=== PATIENT | female | born 1980 | race African-American/Black ===

== ENCOUNTER 2018-03-22 18:26 | Emergency (ER) | payer SELFPAY ==
[2018-03-22 18:45] VITALS: BP 164/89
[2018-03-22] MEDS ORDERED: CIPROFLOXACIN HCL 0.3% OPH SOLN 2.5 ML OS ONE (18:57)
[2018-03-22] MEDS ORDERED: IBUPROFEN 800 MG TABLET PO ONE (18:58)
--- NOTE | 2018-03-22 19:03 | ER Document Report ---
ED ENT - General Chief Complaint: Ear Pain Stated Complaint: EARACHE Time Seen by Provider: 03/22/18 18:48 Mode of Arrival: Ambulatory Information source: Patient Notes: 37-year-old female presented ED for complaint of ear pain with sinus drainage this started yesterday. She states the pain is so bad in her left ear that is causing headaches. Patient is alert oriented, pupils equal and react to light. TRAVEL OUTSIDE OF THE [place] IN LAST 30 DAYS: No - HPI Patient complains to provider of: Ear problem, Nose problem. No: Throat problem Onset: Yesterday Onset/Duration: Gradual Quality of pain: Stabbing - Throbbing Severity: Severe Pain Level: 5 Context: Recent Illness Location of pain: Ears, Nose, Sinus Associated symptoms: Ear pain, Ear drainage, Runny nose, Sinus pain, Sinus drainage Similar symptoms previously: No Recently seen / treated by doctor: No - Related Data Allergies/Adverse Reactions: Penicillins Allergy (Verified 03/22/18 18:27) Past Medical History - General Information source: Patient - Social History Smoking Status: Current Every Day Smoker Cigarette use (# per day): Yes - Half pack per day Chew tobacco use (# tins/day): No Smoking Education Provided: Yes - 4 minutes Frequency of alcohol use: Social - Couple beer every other day Drug Abuse: None Occupation: Call center Family History: Reviewed & Not Pertinent Patient has suicidal ideation: No Patient has homicidal ideation: No - Past Medical History Cardiac Medical History: Reports: None Pulmonary Medical History: Reports: None EENT Medical History: Reports: None Neurological Medical History: Reports: None Endocrine Medical History: Reports: None Renal/ Medical History: Reports: None Malignancy Medical History: Reports: None GI Medical History: Reports: None Musculoskeltal Medical History: Reports None Skin Medical History: Reports None Psychiatric Medical History: Reports: Hx Anxiety, Hx Bipolar Disorder, Hx Depression Traumatic Medical History: Reports: None Infectious Medical History: Reports: None Past Surgical History: Reports: Hx Tubal Ligation Review of Systems - Review of Systems Constitutional: Recent illness EENT: Ear pain, Ear discharge, Nose congestion, Nose discharge, Sinus pressure, Sinus discharge Cardiovascular: No symptoms reported Respiratory: No symptoms reported Gastrointestinal: No symptoms reported Genitourinary: No symptoms reported Female Genitourinary: No symptoms reported Skin: No symptoms reported Hematologic/Lymphatic: No symptoms reported Neurological/Psychological: Headaches -: Yes All other systems reviewed and negative Physical Exam - Vital signs Vitals: Temp Pulse Resp BP Pulse Ox 98.8 F 88 16 164/89 H 100 03/22/18 18:44 03/22/18 18:44 03/22/18 18:44 03/22/18 18:44 03/22/18 18:44 Interpretation: Normal - General General appearance: Appears well, Alert - HEENT Head: Normocephalic, Atraumatic Eyes: Normal Pupils: PERRL Ears: Pinna tenderness External canal: Erythema, Swollen Tympanic membrane: Other - Able to visualize due to the swelling Sinus: Normal Nasal: Swelling, Clear rhinorrhea Mouth/Lips: Normal Mucous membranes: Normal Pharynx: Post nasal drainage Neck: Anterior cervical chain - Respiratory Respiratory status: No respiratory distress Chest status: Nontender Breath sounds: Normal Chest palpation: Normal - Cardiovascular Rhythm: Regular Heart sounds: Normal auscultation Murmur: No - Abdominal Inspection: Normal Distension: No distension Bowel sounds: Normal Tenderness: Nontender Organomegaly: No organomegaly - Back Back: Normal, Nontender - Extremities General upper extremity: Normal inspection, Nontender, Normal color, Normal ROM , Normal temperature General lower extremity: Normal inspection, Nontender, Normal color, Normal ROM , Normal temperature, Normal weight bearing. No: Leila's sign - Neurological Neuro grossly intact: Yes Cognition: Normal Orientation: AAOx4 [place] Coma Scale Eye Opening: Spontaneous [place] Coma Scale Verbal: Oriented [place] Coma Scale Motor: Obeys Commands [place] Coma Scale Total: 15 Speech: Normal Motor strength normal: LUE, RUE, LLE, RLE Sensory: Normal - Psychological Associated symptoms: Normal affect, Normal mood - Skin Skin Temperature: Warm Skin Moisture: Dry Skin Color: Normal Course - Re-evaluation Re-evalutation: 03/22/18 20:51 Patient had a left otitis externa. Patient was treated with Cipro with wick to the left ear. Patient was given instructions on eardrop use. Patient was also given instructions on cough and cold treatments. Patient to follow-up with her primary doctor. Patient also encouraged to decrease or stop smoking. After performing a Medical Screening Examination, I estimate there is LOW risk for ACUTE CORONARY SYNDROME, RESPIRATORY FAILURE, SEPSIS OR MENINGITIS, thus I consider the discharge disposition reasonable. I have reevaluated this patient multiple times and no significant life threatening changes are noted. The patient and I have discussed the diagnosis and risks, and we agree with discharging home with close follow-up. We also discussed returning to the Emergency Department immediately if new or worsening symptoms occur. We have discussed the symptoms which are most concerning (e.g., changing or worsening pain, trouble swallowing or breathing, neck stiffness, fever) that necessitate immediate return. - Vital Signs Vital signs: Temp Pulse Resp BP Pulse Ox 98.8 F 88 16 164/89 H 100 03/22/18 18:44 03/22/18 18:44 03/22/18 18:44 03/22/18 18:44 03/22/18 18:44 Discharge - Discharge Clinical Impression: Otitis externa Qualifiers: Otitis externa type: unspecified type Chronicity: acute Laterality: left Qualified Code(s): H60.502 - Unspecified acute noninfective otitis externa, left ear Condition: Stable Disposition: HOME, SELF-CARE Instructions: Family Physicians / Practices, Use of Sxjd-Yra-Lzvjjua Ibuprofen ([facility]) Additional Instructions: OTITIS EXTERNA: You have otitis externa -- an infection of the outer ear canal. This can be very painful. It's sometimes called "swimmer's ear," because it often occurs after prolonged water exposure. Many things, such as earwax and dirt in the ear, can contribute to it. The usual treatment is antibiotic/antiinflammatory ear drops. Occasionally , a wick will be placed in the ear to draw in the medicine. If the infection is severe, an oral antibiotic may be prescribed. Pain medication is often needed. Avoid getting water in the ear. Outer ear infections often take longer to heal than you might expect. Some tenderness and ache in the ear may persist for about two weeks. See your physician if you fail to improve as expected. Call the doctor at once if you develop fever, increasing swelling (particularly if it makes your ear "poke out"), severe headache, stiff neck, or decreased hearing. USE OF EAR DROPS: Your ear drops won't do much good if they don't get all the way in. To help the ear drops penetrate all the way to the ear drum, use the following technique. If you encounter problems of any kind, notify the physician. (1) Lay your head sideways on a pillow. (2) Place the dropper tip just barely inside the ear canal, almost touching the bottom side of the canal. The liquid is tolerated better on the bottom of the canal. (3) Squeeze out the appropriate amount of medicine, and remove the dropper. (4) Grab the back of the ear (just behind the ear canal) between your index finger and thumb. (5) Tug up, then let the ear drop back. Repeat several times. This pumps the medicine down. (6) Wait five minutes, then place a cotton ball in the ear canal to catch and hold the medicine. USING EAR DROPS WITH A WICK: A wick may be placed in your ear. This keeps the medicine in constant contact with the ear canal. You'll need to put fresh medicine into the wick. Follow these instructions. If you encounter problems of any kind, notify the physician. (1) Lay your head sideways on a pillow. (2) Place the dropper tip so it's almost touching the wick. (3) Squeeze out the appropriate amount of medicine. (4) Wait a minute for the medicine to soak in before sitting up. (5) Wipe away any extra medicine from your ear. CIPROFLOXACIN: You have been given an antibacterial agent, ciprofloxacin (Cipro). This medicine is not related to the penicillins, sulfas, cephalosporins, or tetracyclines. It is often given to patients who are allergic to these drugs. It has been chosen for you either because other drugs are not appropriate, or because of the nature of your problem. Cipro should not be taken with antacids, as these can decrease its effectiveness. It can be taken without regard to meals. CIPRO SHOULD NOT BE TAKEN BY CHILDREN, NURSING WOMEN, OR WOMEN. Although Cipro is usually well-tolerated, common side effects can include nausea and diarrhea. Contact your doctor if you experience any unusual symptoms while on this medication, such as joint pain or swelling, shortness of breath, wheezing, faintness, or hives. USE OF ACETAMINOPHEN (Tylenol): Acetaminophen may be taken for pain relief or fever control. It's much safer than aspirin, offering a wider range of "safe" dosages. It is safe during . Some brand names are Tylenol, Panadol, Datril, Anacin 3, Tempra, and Liquiprin. Acetaminophen can be repeated every four hours. The following are maximum recommended dosages: WEIGHT Dose Drops Elixir Chewable( 80mg) (LBS.) drprs=droppers tsp=teaspoon 6 40 mg 0.4 ml (1/2) 6-11 80 mg 0.8 ml (full) tsp 1 tab 12-16 120 mg 1 1/2 drprs 3/4 tsp 1 1/2 tabs 17-23 160 mg 2 drprs 1 tsp 2 tabs 24-30 240 mg 3 drprs 1 1/2 tsp 3 tabs 30-35 320 mg 2 tsp 4 tabs 36-41 360 mg 2 1/4 tsp 4 1/2 tabs 42-47 400 mg 2 1/2 tsp 5 tabs 48-53 480 mg 3 tsp 6 tabs 54-59 520 mg 3 1/4 tsp 6 1/2 tabs 60-64 560 mg 3 1/2 tsp 7 tabs 65-70 600 mg 3 3/4 tsp 7 1/2 tabs 71-76 640 mg 4 tsp 8 tabs 77-82 720 mg 4 1/2 tsp 9 tabs 83-88 800 mg 5 tsp 10 tabs >89 pounds or adults 650 mg to 900 mg Acetaminophen can be repeated every four hours. Maximum dose not to exceed 4000 mg a day. These maximum recommended dosages are slightly higher than the dosages written on the product container, but these dosages are very safe and below the toxic dosage for acetaminophen. FOLLOW-UP CARE: If you have been referred to a physician for follow-up care, call the physician s office for an appointment as you were instructed or within the next two days. If you experience worsening or a significant change in your symptoms, notify the physician immediately or return to the Emergency Department at any time for re-evaluation. Prescriptions: Ciprofloxacin HCl/Hc [Cipro Hc Otic Suspension 10 ml] 4 drop LFT_EAR BID #1 bottle Forms: Elevated Blood Pressure, Smoking Cessation Education, Return to Work
== END 2018-03-22 19:34 | disposition home or self-care (01) ==
LOC: ER 18:26
DX: H60.502 Unspecified acute noninfective otitis externa, left ear (principal); H92.02 Otalgia, left ear; H92.10 Otorrhea, unspecified ear; R51 Headache; J34.89 Other specified disorders of nose and nasal sinuses; R09.89 Other specified symptoms and signs involving the circulatory and respiratory systems; F17.210 Nicotine dependence, cigarettes, uncomplicated
CPT/HCPCS: 99282; J3490

== ENCOUNTER 2018-04-14 00:54 | Emergency (ER) | payer SELFPAY ==
[2018-04-14] MEDS ORDERED: LIDOCAINE 1% INJ-PF (10 MG/ML) 30 ML SDV INJ ONE (01:25)
--- NOTE | 2018-04-14 01:56 | RADIOLOGY REPORT (SQ) ---
PLAIN FILM OF THE ELBOW right CLINICAL HISTORY: 37-year-old female with right elbow pain. TECHNIQUE: Frontal and lateral views of the elbow are submitted for review. COMPARISON:None. FINDINGS: There is a small avulsion seen involving the posterior aspect of the proximal radial head. This is best seen on the lateral view. Trace effusion is demonstrated. Bone mineralization is within normal limits. Joint spaces are maintained. IMPRESSION: Small avulsion involving the posterior aspect of the inferior proximal radial head seen best on the lateral view.
--- NOTE | 2018-04-14 02:47 | ER Document Report ---
ED General - General Mode of Arrival: Ambulatory Information source: Patient TRAVEL OUTSIDE OF THE [place] IN LAST 30 DAYS: No - General Chief Complaint: Laceration Stated Complaint: RIGHT ELBOW LACERATION Time Seen by Provider: 04/14/18 01:20 Notes: 37-year-old female patient presents with complaint of laceration to her right elbow. Patient reports that she hit her elbow into a picture frame. Patient reports that she had a tetanus shot approximately 3 years ago. (PEGGY BARTLETT) - Related Data Allergies/Adverse Reactions: Penicillins Allergy (Verified 03/22/18 18:27) Past Medical History - Social History Smoking Status: Current Every Day Smoker Chew tobacco use (# tins/day): No Frequency of alcohol use: Occasional Drug Abuse: None Family History: Reviewed & Not Pertinent Patient has suicidal ideation: No Patient has homicidal ideation: No Renal/ Medical History: Denies: Hx Peritoneal Dialysis Psychiatric Medical History: Reports: Hx Anxiety, Hx Bipolar Disorder, Hx Depression Past Surgical History: Reports: Hx Tubal Ligation - Vital signs Vitals: Temp Pulse Resp BP Pulse Ox 98.7 F 105 H 20 174/104 H 98 04/14/18 01:03 04/14/18 01:03 04/14/18 01:03 04/14/18 01:03 04/14/18 01:03 Course - Re-evaluation Re-evalutation: Patient's 2 cm laceration to right elbow was repaired, see procedure note. Patient has full range of motion of her right arm, radial and ulnar pulses are present. Cap refill is less than 3 seconds and patient has normal sensation to her bilateral extremities. Patient was discharged home with instructions to return to the emergency department or to her primary care provider for suture removal. Upon review of the final radiology report there is a small avulsion fracture to the proximal radial head. Patient already discharged at the time I reviewed this radiology report. Will contact patient and provide antibiotic coverage with doxycycline as well as a referral to orthopedics. (PEGGY BARTLETT) 04/14/18 18:57 Patient has returned to the emergency room for the O oblique view she registered as an outpatient. She does have some abrasions and tenderness at the radial head. The laceration is at the olecranon. She worked all day she could not miss excuse and training. Her cell phone number is [phone] for results of the oblique view. She has signed the new discharge paperwork and understands to follow-up with orthopedics and to fill the doxycycline prescription and hydrocodone that was she was given for pain. (MAGALI RAYO) - Vital Signs Vital signs: Temp Pulse Resp BP Pulse Ox 98.3 F 91 16 176/107 H 100 04/14/18 03:01 04/14/18 03:01 04/14/18 03:01 04/14/18 03:01 04/14/18 03:01 Procedures - Laceration/Wound Repair Right Elbow Wound length (cm): 2 Wound's Depth, Shape: Superficial Anesthetic type: 1% Lidocaine Volume Anesthetic (mLs): 6 Wound explored: Clean Irrigated w/ Saline (mLs): 30 Wound Repaired With: Sutures Suture Size/Type: 5:0, Nylon Number of Sutures: 6 Post-procedure NV exam normal: Yes Complications: No Discharge - Discharge Clinical Impression: Laceration Radial head fracture Qualifiers: Encounter type: initial encounter Fracture type: closed Fracture alignment: nondisplaced Laterality: right Qualified Code(s): S52.124A - Nondisplaced fracture of head of right radius, initial encounter for closed fracture Condition: Stable Disposition: HOME, SELF-CARE Instructions: Antibiotic Ointment Protection ([facility]), Laceration Care ([facility]), Soap Cleansing ([facility]) Additional Instructions: Please return to the emergency department or your primary care provider for suture removal in 10-12 days. Please keep the area clean and dry. Use soapy water twice daily to clean the area. Signs of infection will include redness, swelling, drainage or foul odor. Please return to the emergency department if you develop any of the symptoms. Please take the antibiotic as prescribed. Use the pain medications as needed. Follow-up with orthopedics, call today for an appointment. Prescriptions: Doxycycline Hyclate 100 mg PO BID #14 capsule Hydrocodone/Acetaminophen [Hydrocodon-Acetaminophen 5-325] 1 each PO Q4 PRN #12 tablet PRN Reason: For Pain Forms: Follow-Up Radiology Testing, Return to Work Referrals: EMILEE PENDLETON MD [ACTIVE STAFF] - Follow up as needed
[2018-04-14 03:05] VITALS: BP 176/107
== END 2018-04-14 03:06 | disposition home or self-care (01) ==
LOC: ER 00:54
PROC: 0HQDXZZ Repair Right Lower Arm Skin, External Approach (ICD-10-PCS; principal; 2018-04-14)
DX: S52.124A Nondisplaced fracture of head of right radius, initial encounter for closed fracture (principal); W45.8XXA Other foreign body or object entering through skin, initial encounter; F17.200 Nicotine dependence, unspecified, uncomplicated
CPT/HCPCS: 99283; 73070; 12001; J3490

== ENCOUNTER → 2018-04-14 | Outpatient (CLI) | payer SELFPAY ==
--- NOTE | 2018-04-14 19:17 | RADIOLOGY REPORT (SQ) ---
EXAM DESCRIPTION: ELBOW RIGHT AP/LAT COMPLETED DATE/TIME: 04/14/2018 6:53 pm REASON FOR STUDY: PAIN, ADDITIONAL VIEWS, OBLIQUES ONLY PER DOC COMPARISON: Earlier exam same date NUMBER OF VIEWS: Two views. TECHNIQUE: both oblique radiographic images acquired of the right elbow. LIMITATIONS: None. FINDINGS: MINERALIZATION: Normal. BONES: No acute fracture or dislocation. No worrisome bone lesions. JOINT: No effusion. SOFT TISSUES: No soft tissue swelling. No foreign body. OTHER: No other significant finding. IMPRESSION: The previously described avulsion fracture is not visible on these two views. TECHNICAL DOCUMENTATION: JOB ID: [id number] [place]-[id number] 2010 [employer]- All Rights Reserved Reading location - IP/workstation name: [email or web address]
== END ==
LOC: RAD 18:37
PROVIDERS: ATTEND Nurse Practitioner
DX: M25.521 Pain in right elbow (principal)

== ENCOUNTER 2018-04-25 14:50 | Emergency (ER) | payer SELFPAY ==
[2018-04-25 15:01] VITALS: BP 152/89
--- NOTE | 2018-04-25 15:23 | ER Document Report ---
ED Suture/Wound Recheck - General Chief Complaint: Suture Removal Stated Complaint: SUTURE REMOVAL Time Seen by Provider: 04/25/18 15:21 Mode of Arrival: Ambulatory Information source: Patient Notes: 37-year-old female presented ED for suture removal from her right upper arm. She was seen in the ED for suture repair of the laceration 11 days ago. She had 5 sutures in her arm. She states she fell hitting a glass at home. She is alert and oriented respirations regular and unlabored speaking in full sentences walking with a even steady gait. There is no signs or symptoms of infection or inflammation to the sutures. There is been no pain to the area. She states there is been no drainage. TRAVEL OUTSIDE OF THE [place] IN LAST 30 DAYS: No - HPI Previous ED treatment: Laceration repair Quality of pain: No pain Severity: None Pain Level: Denies Context: Injury Symptoms since procedure: No complaints Exacerbated by: Denies Relieved by: Denies - Related Data Allergies/Adverse Reactions: Penicillins Allergy (Verified 04/25/18 14:50) Past Medical History - General Information source: Patient - Social History Smoking Status: Current Every Day Smoker Cigarette use (# per day): Yes - One half pack a day Chew tobacco use (# tins/day): No Smoking Education Provided: Yes - 4 minutes Frequency of alcohol use: Occasional Drug Abuse: None 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 Family History: Reviewed & Not Pertinent Patient has suicidal ideation: No Patient has homicidal ideation: No - Past Medical History Cardiac Medical History: Reports: None Pulmonary Medical History: Reports: None EENT Medical History: Reports: None Neurological Medical History: Reports: None Endocrine Medical History: Reports: None Renal/ Medical History: Reports: None Malignancy Medical History: Reports: None GI Medical History: Reports: None Musculoskeltal Medical History: Reports None Skin Medical History: Reports None Psychiatric Medical History: Reports: Hx Anxiety, Hx Bipolar Disorder, Hx Depression Traumatic Medical History: Reports: None Infectious Medical History: Reports: None Past Surgical History: Reports: Hx Tubal Ligation Review of Systems - Review of Systems Constitutional: No symptoms reported EENT: No symptoms reported Cardiovascular: No symptoms reported Respiratory: No symptoms reported Gastrointestinal: No symptoms reported Genitourinary: No symptoms reported Female Genitourinary: No symptoms reported Musculoskeletal: No symptoms reported Skin: Other - Laceration to the right arm well approximated, no signs or symptoms of inflammation or infection. No redness no drainage no swelling no pain. Hematologic/Lymphatic: No symptoms reported Neurological/Psychological: No symptoms reported Physical Exam - Vital signs Vitals: Temp Pulse Resp BP Pulse Ox 99.3 F 85 16 152/89 H 98 04/25/18 14:55 04/25/18 14:55 04/25/18 14:55 04/25/18 14:55 04/25/18 14:55 - Skin Skin Temperature: Warm Skin Moisture: Dry Skin Color: Normal Skin irregularity: Laceration - Laceration to the right arm well approximated, no signs or symptoms of inflammation or infection. No redness no drainage no swelling no pain. Location of irregularity: Extremities Course - Re-evaluation Re-evalutation: 04/25/18 17:19 Area of sutures cleaned with surgical scrub lacerations removed bacitracin applied to the area patient discharged home with instructions for ibuprofen or Tylenol for any discomfort and to follow-up if the laceration developed any redness swelling or inflammation. Patient verbalized understanding of instructions and agreement with treatment plan - Vital Signs Vital signs: Temp Pulse Resp BP Pulse Ox 99.3 F 85 16 152/89 H 98 04/25/18 14:55 04/25/18 14:55 04/25/18 14:55 04/25/18 14:55 04/25/18 14:55 Discharge - Discharge Clinical Impression: Visit for suture removal Condition: Stable Disposition: HOME, SELF-CARE Instructions: Acetaminophen, Use of Mfkp-Nek-Gcurusl Ibuprofen ([facility]) Additional Instructions: Care of Steri-Strip Closure Your cut has been closed up with a special surgical tape. For this type of cut, it can replace stitches. You must protect the wound just as you would with stitches, however. For the first few days, keep the wound area completely dry. This also means you should avoid activity which makes you sweat. Do not move the area if motion stretches or wrinkles the strips. Don't allow the area to be bumped -- if bleeding occurs, the blood can make the strips loosen. The strips are somewhat waterproof. After a few days, the physician may allow you to shower. Be sure to ask if it's OK. Do not remove the tape until it peels off by itself. At that time, the wound should be healed. FOLLOW-UP CARE: If you have been referred to a physician for follow-up care, call the physician s office for an appointment as you were instructed or within the next two days. If you experience worsening or a significant change in your symptoms, notify the physician immediately or return to the Emergency Department at any time for re-evaluation. Forms: Elevated Blood Pressure, Smoking Cessation Education, Return to Work Referrals: PEGGY LARIOS MD [ACTIVE STAFF] - Follow up as needed
== END 2018-04-25 15:27 | disposition home or self-care (01) ==
LOC: ER 14:50
DX: S41.111D Laceration without foreign body of right upper arm, subsequent encounter (principal); W25.XXXD Contact with sharp glass, subsequent encounter

== ENCOUNTER 2018-05-20 14:42 | Emergency (ER) | payer SELFPAY ==
[2018-05-20 14:52] VITALS: BP 166/97
[2018-05-20 16:34] LABS: HEMATOCRIT 28.3 % (36.0-47.0); MEAN CORPUSCULAR HEMOGLOBIN 18.3 pg (27.0-33.4); PLATELET COUNT 259 10^3/uL (150-450); RED BLOOD COUNT 4.93 10^6/uL (3.72-5.28); RED CELL DISTRIBUTION WIDTH 26.4 % (11.5-14.0); WHITE BLOOD COUNT 5.5 10^3/uL (4.0-10.5)
[2018-05-20 16:36] LABS: INTERNATIONAL RATION (INR) 0.94; PARTIAL THROMBOPLASTIN TIME 26.2 SEC (23.5-35.8)
[2018-05-20 16:46] LABS: ANION GAP 10 (5-19); BLOOD UREA NITROGEN 12 mg/dL (7-20); CALCIUM 9.6 mg/dL (8.4-10.2); CARBON DIOXIDE 25 mmol/L (22-30); CHLORIDE 104 mmol/L (98-107); GLUCOSE 102 mg/dL (75-110); POTASSIUM 4.8 mmol/L (3.6-5.0); SODIUM 138.5 mmol/L (137-145)
[2018-05-20] MEDS ORDERED: ALBUTEROL SULFATE HFA (90 MCG/PUFF) 8 GM MDI (1 MDI/ER DISP) IH ONE (16:49)
[2018-05-20 16:58] LABS: ABSOLUTE LYMPHOCYTES# (MANUAL) 1.8 10^3/uL (0.5-4.7); ABSOLUTE MONOCYTES # (MANUAL) 0.1 10^3/uL (0.1-1.4); ABSOLUTE NEUTROPHILS# (MANUAL) 3.4 10^3/uL (1.7-8.2); BASOPHILS % (MANUAL) 1 % (0-2); EOSINOPHILS % (MANUAL) 3 % (0-6); LYMPHOCYTES % (MANUAL) 33 % (13-45); MONOCYTES % (MANUAL) 2 % (3-13); SEGMENTED NEUTROPHILS % (MAN) 61 % (42-78); TOTAL CELLS COUNTED 100
[2018-05-20 17:01] LABS: ANISOCYTOSIS 3+; HYPOCHROMASIA 3+; PLATELET COMMENT ADEQUATE; POIKILOCYTOSIS 2+; TARGET CELLS 2+; TEAR DROP CELLS SLIGHT
[2018-05-20 17:02] LABS: MEAN CORPUSCULAR VOLUME 57 fl (80-97)
--- NOTE | 2018-05-20 17:41 | RADIOLOGY REPORT (SQ) ---
EXAM DESCRIPTION: U/S NON-OB PELVIS LTD W/O DOP COMPLETED DATE/TIME: 05/20/2018 5:30 pm REASON FOR STUDY: heavy vag bleeding fibroids? COMPARISON: None. TECHNIQUE: Dynamic and static grayscale images acquired of the pelvis via transvaginal approach and recorded on PACS. Additional selected color Doppler and spectral images recorded. LIMITATIONS: None. FINDINGS: UTERUS: Enlarged and heterogenous with multiple masses, the largest measuring 4 cm. ENDOMETRIAL STRIPE: No focal or generalized thickening. No masses. CERVIX: No nabothian cysts. RIGHT OVARY AND DOPPLER: Ovary not visualized. LEFT OVARY AND DOPPLER: Ovary not visualized. FREE FLUID: None noted. OTHER: No other significant finding. MEASUREMENTS: UTERUS: 8.6 x 13 cm. ENDOMETRIAL STRIPE: 6 mm. RIGHT OVARY: Not visualized. LEFT OVARY: Not visualized. IMPRESSION: ENLARGED HETEROGENOUS UTERUS WITH MULTIPLE MASSES CONSISTENT WITH FIBROIDS. TECHNICAL DOCUMENTATION: JOB ID: [id number] [employer]- All Rights Reserved Rev Reading location - IP/workstation name: [email or web address]
--- NOTE | 2018-05-20 18:33 | ER Document Report ---
ED General - General Chief Complaint: Vaginal Bleeding Stated Complaint: VAGINAL BLEEDING Time Seen by Provider: 05/20/18 16:09 TRAVEL OUTSIDE OF THE [place] IN LAST 30 DAYS: No - HPI Patient complains to provider of: Vaginal bleeding Notes: Patient coming in for evaluation of vaginal bleeding. Patient states heavy bleeding started earlier today. Patient states she had a normal menstrual cycle approximately 2 weeks ago patient is unaware of her status at this time. Patient does state that her mom went through early menopause around the age of 36-38. Patient states she has not seen an [facility] this is the first time she had a heavy menstrual cycle denies any headaches dizziness weakness nausea vomiting fevers chills diarrhea. Denies any trauma - Related Data Allergies/Adverse Reactions: Penicillins Allergy (Verified 05/20/18 14:42) Past Medical History - Social History Smoking Status: Current Every Day Smoker Chew tobacco use (# tins/day): No Frequency of alcohol use: Occasional Drug Abuse: None Family History: Reviewed & Not Pertinent Patient has suicidal ideation: No Patient has homicidal ideation: No Renal/ Medical History: Denies: Hx Peritoneal Dialysis Psychiatric Medical History: Reports: Hx Anxiety, Hx Bipolar Disorder, Hx Depression Past Surgical History: Reports: Hx Tubal Ligation Review of Systems - Review of Systems Constitutional: No symptoms reported EENT: No symptoms reported Cardiovascular: No symptoms reported Respiratory: No symptoms reported Gastrointestinal: No symptoms reported Genitourinary: No symptoms reported Female Genitourinary: Vaginal bleeding Musculoskeletal: No symptoms reported Skin: No symptoms reported Hematologic/Lymphatic: No symptoms reported Neurological/Psychological: No symptoms reported -: Yes All other systems reviewed and negative Physical Exam - Vital signs Vitals: Temp Pulse Resp BP Pulse Ox 98.5 F 99 20 166/97 H 97 05/20/18 14:51 05/20/18 14:51 05/20/18 14:51 05/20/18 14:51 05/20/18 14:51 Interpretation: Normal - General General appearance: Appears well, Alert - HEENT Head: Normocephalic, Atraumatic Eyes: Normal Pupils: PERRL - Respiratory Respiratory status: No respiratory distress Chest status: Nontender Breath sounds: Normal Chest palpation: Normal - Cardiovascular Rhythm: Regular Heart sounds: Normal auscultation Murmur: No - Abdominal Inspection: Normal Distension: No distension Bowel sounds: Normal Tenderness: Nontender Organomegaly: No organomegaly - Back Back: Normal, Nontender - Extremities General upper extremity: Normal inspection, Nontender, Normal color, Normal ROM , Normal temperature General lower extremity: Normal inspection, Nontender, Normal color, Normal ROM , Normal temperature, Normal weight bearing. No: Leila's sign - Neurological Neuro grossly intact: Yes Cognition: Normal Orientation: AAOx4 [place] Coma Scale Eye Opening: Spontaneous [place] Coma Scale Verbal: Oriented [place] Coma Scale Motor: Obeys Commands [place] Coma Scale Total: 15 Speech: Normal Motor strength normal: LUE, RUE, LLE, RLE Sensory: Normal - Psychological Associated symptoms: Normal affect, Normal mood - Skin Skin Temperature: Warm Skin Moisture: Dry Skin Color: Normal Course - Re-evaluation Re-evalutation: 05/20/18 20:40 Anemia looks to be more chronic with a fibroid uterus. More likely this etiology the patient's symptoms. Recommend patient start taking iron tablets and follow-up with [facility]. Patient states understanding. - Vital Signs Vital signs: Temp Pulse Resp BP Pulse Ox 98.5 F 99 20 166/97 H 97 05/20/18 14:51 05/20/18 14:51 05/20/18 14:51 05/20/18 14:51 05/20/18 14:51 - Laboratory Result Diagrams: 05/20/18 16:13 05/20/18 16:13 Laboratory results interpreted by me: 05/20/18 16:13 Hgb 9.0 L Hct 28.3 L MCV 57 L MCH 18.3 L RDW 26.4 H Monocytes % (Manual) 2 L Discharge - Discharge Clinical Impression: Fibroid (bleeding) (uterine) Qualifiers: Uterine leiomyoma location: unspecified location Qualified Code(s): D25.9 - Leiomyoma of uterus, unspecified Menorrhagia Qualifiers: Menorrahagia type: with irregular cycle Qualified Code(s): N92.1 - Excessive and frequent menstruation with irregular cycle Condition: Good Disposition: HOME, SELF-CARE Instructions: [facility] Doctors, Vaginal Bleeding ([facility]) Additional Instructions: Laboratory studies today do show signs of anemia but at this time no need for any blood transfusions. Would highly recommend that she start taking iron tablets as prescribed. Your ultrasound showed a fibroid uterus more likely the reason for irregular menstrual cycles and heavy bleeding. I would highly recommend following up with [facility] for further evaluation. I recommend taking Motrin and Tylenol together 600 mg of Motrin along with 650 mg of Tylenol 3 times a day for any pain control. Prescriptions: Ferrous Sulfate [Iron] 325 mg PO DAILY #30 tablet Forms: Return to Work
[2018-05-22 16:40] LABS: PATH REVIEW PATHOLOGIST REVIEWED
== END 2018-05-20 18:45 | disposition home or self-care (01) ==
LOC: ER 14:42
DX: D25.9 Leiomyoma of uterus, unspecified (principal); N92.1 Excessive and frequent menstruation with irregular cycle; F17.210 Nicotine dependence, cigarettes, uncomplicated; Z95.1 Presence of aortocoronary bypass graft
CPT/HCPCS: 99284; 36415; 84703; 85025; 85610; 85730; 80048; 76857; J3490

== ENCOUNTER 2018-09-17 21:04 | Emergency (ER) | payer SELFPAY ==
[2018-09-17] MEDS ORDERED: HALOPERIDOL LACTATE INJ 5 MG/1 ML VIAL IM ONE (21:54)
[2018-09-17] MEDS ORDERED: LORAZEPAM INJ 2 MG/1 ML VIAL IM ONE (21:55)
--- NOTE | 2018-09-17 22:08 | ER Document Report ---
ED General - General Chief Complaint: Overdose Stated Complaint: SUICIDAL IDEATION Time Seen by Provider: 09/17/18 21:33 Mode of Arrival: Ambulatory Information source: Patient Notes: 38-year-old female presents emergency department with complaints of suicidal ideations, suicide attempt. Patient states that she took half a bottle of Motrin in an attempt to kill herself. She says that she's depressed. She's been drinking alcohol all day. Denies cocaine, marijuana, heroin, meth. Poison control was consulted. They would like EKG, labs ordered. They recommend observing the patient for 6 hours after ingestion. Patient is unsure when she took the pills. She drove herself to the emergency department. Patient does have a history of depression and previous suicide attempts. Not currently on any medications. Patient states that she took pills in the past. Patient denies any homicidal ideations to myself. She denies any delusions or hallucinations. TRAVEL OUTSIDE OF THE [place] IN LAST 30 DAYS: No - HPI Onset: Just prior to arrival Quality of pain: No pain Severity: Severe Associated symptoms: None Exacerbated by: Denies Relieved by: Denies Similar symptoms previously: No Recently seen / treated by doctor: No - Related Data Allergies/Adverse Reactions: Penicillins Allergy (Verified 05/20/18 14:42) Past Medical History - Social History Smoking Status: Current Every Day Smoker Chew tobacco use (# tins/day): No Frequency of alcohol use: Heavy Drug Abuse: None Family History: Reviewed & Not Pertinent Patient has suicidal ideation: No Patient has homicidal ideation: No Renal/ Medical History: Denies: Hx Peritoneal Dialysis Psychiatric Medical History: Reports: Hx Anxiety, Hx Bipolar Disorder, Hx Depression Past Surgical History: Reports: Hx Tubal Ligation Review of Systems - Review of Systems Constitutional: No symptoms reported EENT: No symptoms reported Cardiovascular: No symptoms reported Respiratory: No symptoms reported Gastrointestinal: No symptoms reported Genitourinary: No symptoms reported Female Genitourinary: No symptoms reported Musculoskeletal: No symptoms reported Skin: No symptoms reported Hematologic/Lymphatic: No symptoms reported Neurological/Psychological: Suicidal ideation -: Yes All other systems reviewed and negative Physical Exam - Vital signs Vitals: Temp Pulse Resp BP Pulse Ox 98.9 F 108 H 24 H 134/81 H 96 09/17/18 21:13 09/17/18 21:13 09/17/18 21:13 09/17/18 21:13 09/17/18 21:13 - Notes Notes: PHYSICAL EXAMINATION: GENERAL: Intoxicated. Tearful. HEAD: Atraumatic, normocephalic. EYES: Pupils equal round and reactive to light, extraocular movements intact, conjunctiva are normal. ENT: Nares patent, oropharynx clear without exudates. Moist mucous membranes. NECK: Normal range of motion, supple without lymphadenopathy LUNGS: Breath sounds clear to auscultation bilaterally and equal. No wheezes rales or rhonchi. HEART: Regular rate and rhythm without murmurs ABDOMEN: Soft, nontender, nondistended abdomen. No guarding, no rebound. No masses appreciated. Female : deferred Musculoskeletal: Normal range of motion, no pitting or edema. No cyanosis. NEUROLOGICAL: Cranial nerves grossly intact. Normal speech, normal gait. Normal sensory, motor exams PSYCH: Depressed. Suicidal. SKIN: Warm, Dry, normal turgor, no rashes or lesions noted. Course - Re-evaluation Re-evalutation: 09/17/18 23:24 Awaiting behavioral health consult. Patient signed out to oncoming physician with labs pending. - Vital Signs Vital signs: Temp Pulse Resp BP Pulse Ox 98.9 F 108 H 24 H 134/81 H 96 09/17/18 21:13 09/17/18 21:13 09/17/18 21:13 09/17/18 21:13 09/17/18 21:13 - Laboratory Result Diagrams: 09/17/18 22:42 09/17/18 22:42 Laboratory results interpreted by me: 09/17/18 22:42 Carbon Dioxide 18 L Salicylates < 1.0 L Acetaminophen < 10 L Discharge - Discharge Clinical Impression: Suicidal ideations Condition: Stable
[2018-09-17 23:02] LABS: HEMATOCRIT 23.9 % (36.0-47.0); MEAN CORPUSCULAR HEMOGLOBIN 18.1 pg (27.0-33.4); MEAN CORPUSCULAR HGB CONC 32.4 g/dL (32.0-36.0); PLATELET COUNT 515 10^3/uL (150-450); RED BLOOD COUNT 4.28 10^6/uL (3.72-5.28); RED CELL DISTRIBUTION WIDTH 24.3 % (11.5-14.0); WHITE BLOOD COUNT 5.7 10^3/uL (4.0-10.5)
[2018-09-17 23:10] LABS: ALANINE AMINOTRANSFERASE 15 U/L (9-52); ALCOHOL 114 mg/dL (NONE DETECTED); ALKALINE PHOSPHATASE 50 U/L (38-126); ANION GAP 18 (5-19); ASPARTATE AMINO TRANSFERASE 20 U/L (14-36); BILIRUBIN,DIRECT 0.2 mg/dL (0.0-0.4); BILIRUBIN,TOTAL 0.4 mg/dL (0.2-1.3); BLOOD UREA NITROGEN 13 mg/dL (7-20); CARBON DIOXIDE 18 mmol/L (22-30); CHLORIDE 105 mmol/L (98-107); GLUCOSE 103 mg/dL (75-110); POTASSIUM 4.3 mmol/L (3.6-5.0); SODIUM 140.7 mmol/L (137-145); TOTAL PROTEIN 7.3 g/dL (6.3-8.2)
[2018-09-17 23:12] LABS: ACETAMINOPHEN < 10 ug/mL (10-30); SALICYLATE < 1.0 mg/dL (2.0-20.0)
[2018-09-17 23:27] LABS: ABSOLUTE LYMPHOCYTES# (MANUAL) 1.4 10^3/uL (0.5-4.7); ABSOLUTE MONOCYTES # (MANUAL) 0.1 10^3/uL (0.1-1.4); ABSOLUTE NEUTROPHILS# (MANUAL) 4.1 10^3/uL (1.7-8.2); ANISOCYTOSIS 3+; BASOPHILS % (MANUAL) 0 % (0-2); EOSINOPHILS % (MANUAL) 2 % (0-6); LYMPHOCYTES % (MANUAL) 25 % (13-45); MONOCYTES % (MANUAL) 1 % (3-13); NUCLEATED RED BLOOD CELLS 2 /100 WBC (0); POLYCHROMASIA 1+; SEGMENTED NEUTROPHILS % (MAN) 72 % (42-78); TOTAL CELLS COUNTED 100
[2018-09-17 23:28] LABS: PLATELET COMMENT INCREASED; TARGET CELLS 1+; TEAR DROP CELLS SLIGHT
[2018-09-17 23:30] LABS: HEMOGLOBIN 7.7 g/dL (12.0-15.5); MEAN CORPUSCULAR VOLUME 56 fl (80-97)
--- NOTE | 2018-09-18 00:41 | EKG REPORT ---
SEVERITY:- ABNORMAL ECG - SINUS TACHYCARDIA VENTRICULAR PREMATURE COMPLEX TRENA, CONSIDER BIATRIAL ABNORMALITIES CONSIDER RIGHT VENTRICULAR HYPERTROPHY : Confirmed by: Tk Buckley 18-Sep-2018 00:40:23
[2018-09-18 04:48] LABS: APPEARANCE,URINE CLEAR; BILIRUBIN,URINE NEGATIVE (NEGATIVE); COLOR,URINE YELLOW; GLUCOSE, URINE NEGATIVE (NEGATIVE); KETONES,URINE TRACE mg/dL (NEGATIVE); LEUKOCYTE ESTERASE,URINE NEGATIVE (NEGATIVE); NITRITE,URINE NEGATIVE (NEGATIVE); PROTEIN,URINE NEGATIVE (NEGATIVE); UROBILINOGEN,URINE NEGATIVE mg/dL (<2.0)
[2018-09-18 05:06] LABS: URINE AMPHETAMINES SCREEN NEGATIVE; URINE BARBITURATES SCREEN NEGATIVE; URINE BENZODIAZEPINES SCREEN NEGATIVE; URINE COCAINE SCREEN NEGATIVE; URINE MARIJUANA (THC) SCREEN NEGATIVE; URINE METHADONE SCREEN NEGATIVE; URINE PHENCYCLIDINE SCREEN NEGATIVE
--- NOTE | 2018-09-18 05:20 | ER Document Report ---
Doctor's Note Notes: This 38-year-old female underwent a transition of care. She was noted to have a marketed microcytic anemia. However she did have an ingestion of ibuprofen concerning for possible developing GI hemorrhage. Because of this concern will obtain a repeat CBC in 12 hours time. Depending on result will either continue with expectant management likely for her chronic microcytic anemia or will potentially reconsider disposition for necessity of transfusion. Prior to this patient undergoing repeat blood draw her care was signed out to an oncoming provider Dr. Dereck Govea.
[2018-09-18 06:41] LABS: MEAN CORPUSCULAR HEMOGLOBIN 17.8 pg (27.0-33.4); MEAN CORPUSCULAR HGB CONC 31.8 g/dL (32.0-36.0); MEAN CORPUSCULAR VOLUME 56 fl (80-97); PLATELET COUNT 472 10^3/uL (150-450); RED BLOOD COUNT 4.28 10^6/uL (3.72-5.28); RED CELL DISTRIBUTION WIDTH 24.1 % (11.5-14.0); WHITE BLOOD COUNT 6.4 10^3/uL (4.0-10.5)
[2018-09-18 07:00] LABS: HEMOGLOBIN 7.6 g/dL (12.0-15.5)
[2018-09-18 07:10] LABS: ABSOLUTE MONOCYTES # (MANUAL) 0.4 10^3/uL (0.1-1.4); ABSOLUTE NEUTROPHILS# (MANUAL) 3.8 10^3/uL (1.7-8.2); BASOPHILS % (MANUAL) 0 % (0-2); EOSINOPHILS % (MANUAL) 3 % (0-6); LYMPHOCYTES % (MANUAL) 31 % (13-45); MONOCYTES % (MANUAL) 7 % (3-13); SEGMENTED NEUTROPHILS % (MAN) 59 % (42-78); TOTAL CELLS COUNTED 100
[2018-09-18 07:12] LABS: ANISOCYTOSIS 3+; OVALOCYTES SLIGHT; PLATELET COMMENT INCREASED; POIKILOCYTOSIS 3+; POLYCHROMASIA SLIGHT; TARGET CELLS 3+; TOXIC VACUOLATION PRESENT
[2018-09-18 08:26] LABS: ABSOLUTE RETICS # 0.093 10^6/uL (0.028-0.122); RETICULOCYTE COUNT (AUTO) 2.18 % (0.66-2.85)
[2018-09-18 08:59] LABS: IRON(TIBC) 28.6 ug/dL (37-170)
[2018-09-18 09:36] LABS: FERRITIN 5.84 ng/mL (6.2-137.0)
[2018-09-18 10:06] LABS: FOLATE 7.86 ng/mL (>2.76)
--- NOTE | 2018-09-18 10:26 | ER Document Report ---
Doctor's Note Notes: 09/18/18 10:21 Chart reviewed and patient interviewed. Patient is being evaluated for depression and having taken an overdose of a half a bottle of Motrin pills. Patient says she does not feel suicidal at this time. Incidentally noted in the patient's labs is that her hemoglobin is 7.7, repeated 7.6. Patient was here for a vaginal bleeding in April. She had an ultrasound done then that showed multiple masses in the uterus consistent with fibroids. Patient describes her periods being heavy with clots. Her last cycle was in July. She is never had a transfusion. Is not on any iron or other medication. Just last week had a Pap smear done at a local [facility]. They also did some lab work, but she has not heard the results. Vital signs are all normal. Patient' s hemoglobin is low enough for her to receive a transfusion and I recommended a couple of units of blood and then outpatient iron therapy, but the patient refused to have any transfusions. She said she is adamant that she does not want to have any transfusion and get some disease. I think it is reasonable to treat the patient with outpatient iron therapy as her hemoglobin and other findings are consistent with a chronic iron deficiency anemia. Other lab studies have an alcohol level of 114. There is no increase in the BUN or creatinine to suggest GI hemorrhage. Patient appears to be medically stable for transfer or discharge. Mental health believes patient can be discharged for outpatient follow-up and care. Andrew Rollins MD Patient is being given a prescription for ferrous sulfate, 325 mg twice a day for the next month with 1 refill. She was advised to take a stool softener such as Metamucil or Konsyl and drink lots of fluids. She was given a note for work today. Andrew Rollins MD
[2018-09-18 10:46] VITALS: BP 128/60
== END 2018-09-18 10:46 | disposition home or self-care (01) ==
LOC: ER 21:04
DX: T39.312A Poisoning by propionic acid derivatives, intentional self-harm, initial encounter (principal); F32.9 Major depressive disorder, single episode, unspecified; F10.129 Alcohol abuse with intoxication, unspecified; Y90.5 Blood alcohol level of 100-119 mg/100 ml; F17.200 Nicotine dependence, unspecified, uncomplicated; D50.9 Iron deficiency anemia, unspecified; Z88.0 Allergy status to penicillin
CPT/HCPCS: 36415; 80053; 80307; 81001; 82607; 82728; 82746; 83540; 83550; 84703; 85025; 85045; 93005; 93010; 99285

== ENCOUNTER 2019-11-30 06:53 | Emergency (ER) | payer SELFPAY ==
[2019-11-30] MEDS ORDERED: ACETAMINOPHEN 325 MG TABLET PO ONE ×2 (07:05→09:23)
[2019-11-30 08:19] LABS: A TYPE INFLUENZA AG NEGATIVE (NEGATIVE); B INFLUENZA AG NEGATIVE (NEGATIVE)
--- NOTE | 2019-11-30 09:12 | ER Document Report ---
ED Flu Like - General Chief Complaint: Flu Symptoms Stated Complaint: HEAD AND BACK PAIN Time Seen by Provider: 11/30/19 09:08 Notes: Patient is a 39-year-old female who presents to the emergency department with a chief complaint of flulike symptoms. She ended up vomiting once yesterday. She has an upset stomach. Denies any diarrhea. Has a runny nose. TRAVEL OUTSIDE OF THE [place] IN LAST 30 DAYS: No - Related Data Allergies/Adverse Reactions: Penicillins Allergy (Verified 05/20/18 14:42) Past Medical History - Social History Smoking Status: Current Every Day Smoker Chew tobacco use (# tins/day): No Frequency of alcohol use: Occasional Drug Abuse: None Family History: Reviewed & Not Pertinent Patient has suicidal ideation: No Patient has homicidal ideation: No Renal/ Medical History: Denies: Hx Peritoneal Dialysis Psychiatric Medical History: Reports: Hx Anxiety, Hx Bipolar Disorder, Hx Dep ression Past Surgical History: Reports: Hx Tubal Ligation Review of Systems - Review of Systems Notes: REVIEW OF SYSTEMS: CONSTITUTIONAL : Denies recent illness. Denies recent unintentional weight loss. Denies fever, chills, or sweats. EENT: Denies eye, ear, throat, or mouth pain, discharge, or symptoms. Denies nasal or sinus congestion. CARDIOVASCULAR: Denies chest pain. RESPIRATORY: Denies shortness of breath, cough, congestion, difficulty breathing, or wheezing. GASTROINTESTINAL: Denies nausea, vomiting, and diarrhea. Denies abdominal pain. Denies constipation. GENITOURINARY: See HPI. MUSCULOSKELETAL: Denies neck and back pain. Denies joint pain or swelling. SKIN: Denies rash, itchiness, or lesions HEMATOLOGIC : Denies easy bruising or bleeding. LYMPHATIC: Denies swollen, painful, enlarged glands. NEUROLOGICAL: Denies no numbness or tingling denies weakness. Denies headache. Denies altered mental status. Denies alteration in speech. PSYCHIATRIC: Denies stress, anxiety, alteration in sleep patterns, or depression. All other systems reviewed and negative. Physical Exam - Vital signs Vitals: Temp Pulse Resp BP Pulse Ox 100.2 F 118 H 22 H 145/99 H 97 11/30/19 06:58 11/30/19 06:58 11/30/19 06:58 11/30/19 06:58 11/30/19 06:58 - Notes Notes: PHYSICAL EXAMINATION: GENERAL: Appears well, healthy, well-nourished, no acute distress. HEAD: Normocephalic, atraumatic. EYES: PERRL, conjunctiva normal, all extraocular movements intact, sclera nonicteric ENT: Moist mucous membranes. Edema and erythema noted to nasal mucosa. NECK: Supple, no noticeable swelling, redness, rash. Normal range of motion. LUNGS: Equal breath sounds bilaterally and clear to auscultation. No wheezes rales or rhonchi. CARDIOVASCULAR: S1-S2, regular rate, regular rhythm. Radial pulses 2+, normal. ABDOMEN: Normoactive bowel sounds. Soft, nontender, no guarding, no rebound tenderness, and no masses palpated. EXTREMITIES: Normal strength and range of motion, no pitting or edema. No cyanosis. NEUROLOGICAL: Moves all extremities upon command. Strength 5/5 in all extremities. PSYCH: Normal mood, normal affect. SKIN: Warm, dry. No rash, lesions, ulcerations noted. Normal skin turgor. BACK: Bilateral CVA tenderness. Course - Re-evaluation Re-evalutation: 11/30/19 09:27 Patient has some CVA tenderness bilaterally. We will check UA. Influenza screen is negative. 11/30/19 10:47 Urinalysis is unremarkable. No leukocytosis noted. Patient will follow-up with a primary care provider regards to this visit. I have a very low suspicion for any life-threatening etiology at this time. Patient will be sent home with Flonase, Zofran, and cetirizine to help with her symptoms. Follow-up precautions were given. Verbal discharge instructions were given to the patient. They verbalized understanding. They are stable for discharge. - Vital Signs Vital signs: Temp Pulse Resp BP Pulse Ox 97.4 F 92 16 126/89 H 95 11/30/19 11:02 11/30/19 11:02 11/30/19 11:02 11/30/19 11:02 11/30/19 11:02 - Laboratory Laboratory results interpreted by me: 11/30/19 09:33 Urine Blood SMALL H Discharge - Discharge Clinical Impression: Upper respiratory infection, viral, Flu-like symptoms Nausea and vomiting Qualifiers: Vomiting type: unspecified Vomiting Intractability: non-intractable Qualified Code(s): R11.2 - Nausea with vomiting, unspecified Condition: Stable Disposition: HOME, SELF-CARE Instructions: Upper Respiratory Illness ([facility]) Additional Instructions: You were seen today in the emergency department for body aches, flulike symptoms, nausea, and vomiting. Your symptoms are most consistent with an upper respiratory viral infection. Please take acetaminophen 1000 mg and ibuprofen 600 mg every 6 hours as needed for any body aches or fever. You have been given cetirizine, medication to help with your runny nose. Take 1 tablet every day while you have symptoms. You have also been given Flonase, medication to help with the inflammation in your nose. Place 1 spray to each nostril twice a day. If you develop a fever greater than 100.4 F while on ibuprofen and acetaminophen, develop shortness of breath, difficulty breathing, or any symptoms that are worrisome to you, please return to the emergency department. Prescriptions: Cetirizine HCl [All Day Allergy] 10 mg PO DAILY #30 tablet Fluticasone Propionate [Flonase Nasal [place] 50 Mcg/[place] 16 gm] 2 sprays NASL DAILY #1 inhaler Ondansetron [Zofran Odt 4 mg Tablet] 1 - 2 tab PO Q4H PRN #15 tab.rapdis PRN Reason: For Nausea/Vomiting Forms: Return to Work
[2019-11-30] MEDS ORDERED: IBUPROFEN 600 MG TABLET PO ONE (09:23)
[2019-11-30 09:46] LABS: APPEARANCE,URINE CLEAR; BILIRUBIN,URINE NEGATIVE (NEGATIVE); COLOR,URINE YELLOW; GLUCOSE, URINE NEGATIVE (NEGATIVE); KETONES,URINE NEGATIVE (NEGATIVE); LEUKOCYTE ESTERASE,URINE NEGATIVE (NEGATIVE); NITRITE,URINE NEGATIVE (NEGATIVE); PROTEIN,URINE NEGATIVE (NEGATIVE); UROBILINOGEN,URINE NEGATIVE mg/dL (<2.0)
[2019-11-30 11:03] VITALS: BP 126/89
== END 2019-11-30 11:03 | disposition home or self-care (01) ==
LOC: ER 06:53
DX: J06.9 Acute upper respiratory infection, unspecified (principal); B97.89 Other viral agents as the cause of diseases classified elsewhere; R11.2 Nausea with vomiting, unspecified; F17.200 Nicotine dependence, unspecified, uncomplicated; Z88.0 Allergy status to penicillin
CPT/HCPCS: 81001; 87804; 99283

== ENCOUNTER 2019-12-04 01:04 | Emergency (ER) | payer SELFPAY ==
[2019-12-04 01:30] VITALS: BP 152/83
[2019-12-04] MEDS ORDERED: ACETAMINOPHEN 325 MG TABLET PO ONE (01:52)
== END 2019-12-04 02:21 | disposition left against medical advice (07) ==
LOC: ER 01:04
DX: Z53.21 Procedure and treatment not carried out due to patient leaving prior to being seen by health care provider (principal)

== ENCOUNTER 2020-04-17 11:47 | Emergency (ER) | payer SELFPAY ==
--- NOTE | 2020-04-17 12:05 | RADIOLOGY REPORT (SQ) ---
EXAM DESCRIPTION: CT HEAD WITHOUT IMAGES COMPLETED DATE/TIME: 04/17/2020 11:55 am REASON FOR STUDY: Stroke Alert COMPARISON: None. TECHNIQUE: Axial images acquired through the brain without intravenous contrast. Images reviewed wi th bone, brain and subdural windows. Additional sagittal and coronal reconstructions were generated. Images stored on PACS. All CT scanners at this facility use dose modulation, iterative reconstruction, and/or weight based d osing when appropriate to reduce radiation dose to as low as reasonably achievable (ALARA). [facility]: Dose Right [facility]: CareDose [facility]: Dose Right [facility]: Teradose 4D [facility]: [employer]els RADIATION DOSE: mGy. LIMITATIONS: None. FINDINGS: VENTRICLES: Normal size and contour. CEREBRUM: No masses. No hemorrhage. No midline shift. No evidence for acute infarction. Normal gra y/white matter differentiation. No areas of low density in the white matter. CEREBELLUM: No masses. No hemorrhage. No alteration of density. No evidence for acute infarction. EXTRAAXIAL SPACES: No fluid collections. No masses. ORBITS AND GLOBE: No intra- or extraconal masses. Normal contour of globe without masses. CALVARIUM: No fracture. PARANASAL SINUSES: No fluid or mucosal thickening. SOFT TISSUES: No mass or hematoma. OTHER: No other significant finding. IMPRESSION: NORMAL BRAIN CT WITHOUT CONTRAST. EVIDENCE OF ACUTE STROKE: NO. COMMENT: Pertinent positive or negative findings of the imaging study reported as a CRITICAL EXAM t o ER PROVIDER at11:57 on 04/17/2020. Category of Critical Exam: Stroke alert. Quality ID # [id number]: Final reports with documentation of one or more dose reduction techniques (e.g., Au tomated exposure control, adjustment of the mA and/or kV according to patient size, use of iterative reconstruction technique) TECHNICAL DOCUMENTATION: JOB ID: [id number] 2010 [employer]- All Rights Reserved Reading location - IP/workstation name: [email or web address]
--- NOTE | 2020-04-17 12:13 | ER Document Report ---
ED NIH Stroke Scale - NIH Stroke Scale When completed:: Before Alteplase *: 1. NIH scale should be completed with appropriate accompanying assessment tools. *: 2. The NIH should reflect what the patient is capable of doing and should not be coached by the clinician. 1a. Level of Consciousness: 0=Alert;keenly responsive -: 1=Drowsy -: 2=Obtunded -: 3=Coma/unresponsive or reflex to noxious stimuli. 1a. Responses: 0 1b. Orientation Questions: a. What month is it? -: b. How old are you? -: 0=Answers both questions correctly. -: 1=Answers one question correctly or patient is intubated or has orotracheal trauma. -: 2=Answers neither question correctly. 1b. Responses: 0 1c. Response to commands: a. Open and close eyes? -: b. Boiler Tester and release hand? -: Credit is given despite weakness. Demonstration of task is permitted. Substitute command if hands cannot be used. -: 0=Performs both tasks correctly -: 1=Performs one task correctly -: 2=Performs neither task correctly 1c. Responses: 0 2. Gaze: Establish eye contact and instruct patient to "Follow my finger" -: 0=Normal -: 1=Partial gaze palsy. Gaze is abnormal in one or both eyes, but where forced deviation or total gaze paresis is not present. -: 2=Forced deviation or total gaze paresis. 2. Responses: 0 3. Visual Sanchez: Sees fingers in all four quadrants. -: 0=No visual loss. -: 1=Partial hemianopsia. -: 2=Complete hemianopsia. -: 3=Bilateral hemianopsia (including Cortical blindness) 3. Responses: 0 4. Facial Movement: Instruct patient to: -: a. Show me your teeth -: b. Raise your eyebrows -: c. Close your eyes -: d. Smile -: 0=Normal symmetrical movement -: 1=Minor paralysis (flattened nasolabial fold, asymmetry on smiling). -: 2=Partial paralysis (total or near total paralysis of lower face). -: 3=Complete paralysis of upper and lower face 4. Responses: 1 5. Motor functions (left arm): Alternate sides and extend each arm with palms down (90 degrees if sitting or 45 degrees for supine). -: 0=No drift;limb holds for full 10 seconds. -: 1=Drift; limb holds but drifts down before full 10 seconds, but does not hit bed. -: 2=Some effort against gravity; limb cannot get to or maintain position. -: 3=No effort against gravity; limb falls. -: 4=No movement. -: UN=Amputation, joint fusion, explain in comments. 5. Responses (left arm): 0 5. Motor Functions (right arm): Alternate sides and extend each arm with palms down (90 degrees if sitting or 45 degrees for supine). -: 0=No drift;limb holds for full 10 seconds. -: 1=Drift; limb holds but drifts down before full 10 seconds, but does not hit bed. -: 2=Some effort against gravity; limb cannot get to or maintain position. -: 3=No effort against gravity; limb falls. -: 4=No movement. -: UN=Amputation, joint fusion, explain in comments. 5. Responses (right arm): 1 6. Motor Functions (left leg): With patient lying supine, alternate sides and extend each leg (30 degrees always while supine). -: 0=No drift, leg holds position for full 5 seconds -: 1=Drift; leg falls before full 5 seconds but does not hit bed. -: 2=Some effort against gravity, leg falls to bed but some effort against gravity. -: 3=No effort against gravity, leg falls to bed immediately. -: 4=No movement. -: UN=Amputation, joint fusion; explain in comments. 6. Responses (left leg): 0 6. Motor Functions (right leg): With patient lying supine, alternate sides and extend each leg (30 degrees always while supine). -: 0=No drift, leg holds position for full 5 seconds -: 1=Drift; leg falls before full 5 seconds but does not hit bed. -: 2=Some effort against gravity, leg falls to bed but some effort against gravity. -: 3=No effort against gravity, leg falls to bed immediately. -: 4=No movement. -: UN=Amputation, joint fusion; explain in comments. 6. Responses (right leg): 2 7. Limb Ataxia: With eyes open instruct patient to: -: a. "Touch your finger to your nose". -: b. "Touch your heel to your hilario" -: 0=Absent -: 1=Present in one limb. -: 2=Present in two limbs. -: UN=Amputation or joint fusion; explain in comments. 7. Responses: 2 7. If ataxia present choose as appropriate: Right arm, Right leg 8. Sensory: Test sensation using pinprick or noxious stimuli. Test as many body parts as possible. -: 0=Normal;no sensory loss -: 1=Mile to moderate sensory loss (patient feels pin prick but is less sharp on affected side). -: 2=Severe or total sensory loss. 8. Responses: 1 9. Best Language: Instruct patient to: -: a. "Describe what you see in this picture." -: b. "Name the items in this picture." -: c. "Read these sentences." -: 0=No aphasia, normal -: 1=Mild to moderate aphasia. -: 2=Severe aphasia -: 3=Mute, global aphasia, no usable speech or auditory comprehension. 9. Responses: 0 10. Articulation, Dysarthia: Instruct patient to: -: "Read these words" or "Repeat these words" -: 0=Normal -: 1=Mild to moderate; patient may slur some words but can be understood without difficulty. -: 2=Severe; patients speech so slurred as to be unintelligible in the absence of dysphasia. -: UN=Intubated or other physical barrier, explain in comments. 10. Responses: 1 11. Extinction or inattention: 0=No abnormality -: 1= Visual, tactile, auditory, spatial, or personal inattention or extinction to bilateral simulation in one or the sensory modalities. -: 2=Profound jeff-inattention or jeff-inattention to more than one modality; does not recognize own hand. 11. Responses: 0 Total Score: 8
[2020-04-17 12:15] LABS: HEMATOCRIT 25.1 % (36.0-47.0); MEAN CORPUSCULAR HEMOGLOBIN 17.2 pg (27.0-33.4); MEAN CORPUSCULAR HGB CONC 29.7 g/dL (32.0-36.0); MEAN CORPUSCULAR VOLUME 58 fl (80-97); PLATELET COUNT 641 10^3/uL (150-450); RED BLOOD COUNT 4.34 10^6/uL (3.72-5.28); RED CELL DISTRIBUTION WIDTH 30.7 % (11.5-14.0); WHITE BLOOD COUNT 6.4 10^3/uL (4.0-10.5)
[2020-04-17 12:16] LABS: INTERNATIONAL RATION (INR) 1.15; PARTIAL THROMBOPLASTIN TIME 24.7 SEC (23.5-35.8)
--- NOTE | 2020-04-17 12:17 | RADIOLOGY REPORT (SQ) ---
EXAM DESCRIPTION: CHEST SINGLE VIEW IMAGES COMPLETED DATE/TIME: 04/17/2020 11:56 am REASON FOR STUDY: STROKE ALERT COMPARISON: None. NUMBER OF VIEWS: One view. TECHNIQUE: Single frontal radiographic view of the chest acquired. LIMITATIONS: None. FINDINGS: LUNGS AND PLEURA: No opacities, masses or pneumothorax. No pleural effusion. MEDIASTINUM AND HILAR STRUCTURES: No masses. Contour normal. HEART AND VASCULAR STRUCTURES: Heart enlarged without failure. Normal vasculature. BONES: No acute findings. HARDWARE: None in the chest. OTHER: No other significant finding. IMPRESSION: HEART ENLARGED WITHOUT FAILURE. NO OTHER SIGNIFICANT RADIOGRAPHIC FINDING IN THE CHEST. TECHNICAL DOCUMENTATION: JOB ID: [id number] 2010 [employer]- All Rights Reserved Reading location - IP/workstation name: [email or web address]
[2020-04-17 12:18] LABS: PROTHROMBIN TIME 14.7 SEC (11.4-15.4)
--- NOTE | 2020-04-17 12:21 | EKG REPORT ---
SEVERITY:- ABNORMAL ECG - SINUS RHYTHM BIATRIAL ABNORMALITIES : Confirmed by: Vinny Delacruz MD 17-Apr-2020 12:20:52
--- NOTE | 2020-04-17 12:21 | ER Document Report ---
ED General - General Chief Complaint: Weakness Stated Complaint: WEAKNESS Time Seen by Provider: 04/17/20 11:55 TRAVEL OUTSIDE OF THE [place] IN LAST 30 DAYS: No - HPI Notes: Chief complaint: Code stroke alert HPI: 39-year-old female cigarette smoker with no known prior history of stroke or TIA and no known history of hypertension or diabetes states that she began to feel some unusual symptoms at 1108 hrs. today while at work. She noticed that her vision seemed generally blurry and she seemed to be having some trouble speaking. When she tried to get up out of her chair she had profound right- sided weakness. She was able to get the attention of a coworker who called EMS. EMS noted patient had very slurred speech and stuttering as she tried to put her words together. She also had right-sided facial ptosis and flaccid paralysis of right upper and lower extremity with decreased sensation over the entire right side of her body. They documented a markedly elevated blood pressure around 210/120. They transported her directly here. Upon arrival here patient reported that her symptoms had improved slightly. She denied headache nausea vomiting. She denied visual changes upon arrival. - Related Data Allergies/Adverse Reactions: Penicillins Allergy (Verified 05/20/18 14:42) Past Medical History - General Information source: Patient, Emergency Med Personnel - Social History Smoking Status: Current Every Day Smoker Frequency of alcohol use: Social Drug Abuse: None Lives with: Family Family History: Reviewed & Not Pertinent - Past Medical History Cardiac Medical History: Reports: None Neurological Medical History: Denies: Hx Cerebrovascular Accident, Hx Migraine, Hx Seizures Endocrine Medical History: Reports: None Malignancy Medical History: Reports: None GI Medical History: Reports: None Psychiatric Medical History: Reports: Hx Anxiety, Hx Bipolar Disorder, Hx Depression Past Surgical History: Reports: Hx Tubal Ligation Review of Systems - Review of Systems Notes: Constitutional: Negative for fever. HENT: Negative for sore throat. Eyes: As per HPI. Cardiovascular: Negative for chest pain. Respiratory: Negative for shortness of breath. Gastrointestinal: Negative for abdominal pain, vomiting or diarrhea. Genitourinary: Negative for dysuria. Musculoskeletal: Negative for back pain. Skin: Negative for rash. Neurological: As per HPI. 10 point ROS negative except as marked above and in HPI. Physical Exam - Vital signs Vitals: Resp BP Pulse Ox 18 167/99 H 98 04/17/20 11:58 04/17/20 11:58 04/17/20 11:58 Repeat blood pressure at 1200 hrs. 165/78. Interpretation: Hypertensive - Notes Notes: Initial physical exam was performed on arrival here at 1142 hrs. GENERAL: Well-developed well-nourished female appearing anxious. SKIN: Good turgor no rashes. HEAD: Normocephalic atraumatic. EYES: PERRLA. EOMI. Conjunctivae and sclerae clear. EARS: CANALS AND TMS CLEAR. NOSE: CLEAR. MOUTH: Moist mucosa. Good dentition. No stridor or edema. No drooling. NECK: Supple. No masses or thyromegaly. No adenopathy. Carotids 2+ without bruits. No JVD. BACK: Symmetrical without tenderness. CHEST: Respirations unlabored. Breath sounds clear and symmetrical. HEART: Regular rhythm. No murmur gallop or rub. ABDOMEN: Soft nontender without masses, organomegaly or rebound. Bowel sounds normally active. No bruits. GENITALIA: Deferred. EXTREMITIES: No edema. No calf tenderness. Cap refill less than 1.5 seconds. Dorsalis pedis and posterior tibial pulses 3+ and symmetrical. NEUROLOGICAL: GCS 15. NIH stroke score of 8. She is awake alert and appropriately oriented. Patient has minimal dysarthria. No aphasia. Flaccid paralysis of right lower extremity. Drift of right upper extremity. Mild sensory deficit of the entire right side of the body. Limb ataxia involving right upper and right lower extremity. No visual field cuts. Minimal ptosis of lower facial area on the right. PSYCHIATRIC: Appropriate affect. Course - Re-evaluation Re-evalutation: 04/17/20 12:28 Follow-up neurologic exam at 1200 hrs. shows minimal motor impairment of right upper extremity and patient now has mild drift of right lower extremity. Sensory deficits are unchanged. Speech is minimally dysarthric. Significant improvement since initial exam. Head CT normal per radiologist. Twelve-lead EKG shows normal sinus rhythm with no acute changes and rate of 94. I have paged stroke neurology team at [facility] in [facility] at 1205 hrs. and we are currently awaiting response from them. Patient's initial blood pressure was markedly elevated above 185/110. On recheck she is below this threshold without any specific intervention. 04/17/20 12:40 I have spoken at this time with Dr. Monk the on-call stroke neurologist at [facility]. He advises withholding TPA at this time in consideration of the patient's rapid improvement of symptoms. He further suggests that we perform serial NIH stroke scale for the patient and obtain a CTA of head and neck. We will make a decision prior to the 3-hour window of treatment based on patient's clinical course and I will touch base with him again at that point. We note that patient has a significant microcytic anemia with a hemoglobin of 7.5 g. Her platelet count is mildly increased and her indices are small. Review of her history indicates that she has been told she has fibroid uterus in the past and experiences heavy menses. There are no current findings to suggest any acute bleeding. She also underwent a Hemoccult here which was negative. 04/17/20 13:36 Reexamination at this time shows continued improvement. Patient has minimal limb ataxia right upper and right lower extremity. Her strength is now 4/5 in her right upper extremity and 3/5 in right lower extremity. We have had a discussion of risks and benefits of administration of IV TPA and the patient remains undecided as to whether or not she wishes to receive the agent. She wishes to consult with another family member by telephone and will do so right now. I explained to her that the optimal treatment window is going to be within the first 3 hours which would be by 1408 hrs. based on reported last known well time. CTA has been reported as normal by the radiologist. 04/17/20 14:17 NIH scale rescored for this patient remains at 6. After extended discussion of risks and benefits of TPA patient remained undecided as to what she wanted to do. She has now informed me that she does wish to proceed with TPA. I stressed to her multiple times that the agent was most effective if given in the first 3 hours but could be effective up to 4-1/2 hours after onset of symptoms. Delayed administration in his case was due to patient's indecision. TPA infusion has been ordered per protocol. I will recontact [facility] regarding transfer this patient. 04/17/20 14:43 Patient has been accepted for transfer to neuro ICU at [facility] under the care of Dr. Quintin Larose. EMTALA form completed. - Vital Signs Vital signs: Temp Pulse Resp BP Pulse Ox 98.5 F 94 19 156/107 H 100 04/17/20 12:28 04/17/20 15:06 04/17/20 15:06 04/17/20 15:06 04/17/20 15:06 - Laboratory Result Diagrams: 04/17/20 11:58 04/17/20 11:58 Laboratory results interpreted by me: 04/17/20 04/17/20 11:58 11:58 Hgb 7.5 L Hct 25.1 L MCV 58 L MCH 17.2 L MCHC 29.7 L RDW 30.7 H Plt Count 641 H Sodium 131.8 L - Diagnostic Test Radiology reviewed: Reports reviewed - EKG Interpretation by Me Additional EKG results interpreted by me: 04/17/20 14:23 Twelve-lead EKG from 1157 hrs. reviewed contemporaneously by me demonstrates normal sinus rhythm with a rate of 94, normal intervals and a normal axis of +[address]/T wave changes are noted. There is no prior EKG for direct comparison. Critical Care Note - Critical Care Note Total time excluding time spent on procedures (mins): 135 - Code stroke protocol initiated. Subsequent TPA administration. Discharge - Discharge Clinical Impression: Acute CVA (cerebrovascular accident), Chronic Microcytic Anemia Condition: Critical Disposition: [facility]
[2020-04-17 12:28] LABS: HEMOGLOBIN 7.5 g/dL (12.0-15.5)
[2020-04-17 12:32] LABS: ALBUMIN 4.3 g/dL (3.5-5.0); ALKALINE PHOSPHATASE 40 U/L (38-126); ANION GAP 8 (5-19); ASPARTATE AMINO TRANSFERASE 24 U/L (14-36); BILIRUBIN,TOTAL 0.5 mg/dL (0.2-1.3); BLOOD UREA NITROGEN 12 mg/dL (7-20); CARBON DIOXIDE 24 mmol/L (22-30); CHLORIDE 100 mmol/L (98-107); CREATINE KINASE 49 U/L (30-135); GLUCOSE 91 mg/dL (75-110); POTASSIUM 4.8 mmol/L (3.6-5.0); TOTAL PROTEIN 7.5 g/dL (6.3-8.2)
[2020-04-17 12:39] LABS: ABSOLUTE LYMPHOCYTES# (MANUAL) 2.5 10^3/uL (0.5-4.7); ABSOLUTE MONOCYTES # (MANUAL) 0.4 10^3/uL (0.1-1.4); BASOPHILS % (MANUAL) 0 % (0-2); EOSINOPHILS % (MANUAL) 1 % (0-6); LYMPHOCYTES % (MANUAL) 37 % (13-45); MONOCYTES % (MANUAL) 7 % (3-13); SEGMENTED NEUTROPHILS % (MAN) 53 % (42-78); TOTAL CELLS COUNTED 100
[2020-04-17 12:43] LABS: ANISOCYTOSIS 4+; HYPOCHROMASIA 2+; POIKILOCYTOSIS 3+; POLYCHROMASIA 2+
[2020-04-17 12:44] LABS: CREATINE KINASE MB 0.62 ng/mL (<4.55); OVALOCYTES SLIGHT; SCHISTOCYTES SLIGHT
[2020-04-17 12:45] LABS: PLATELET COMMENT INCREASED; TEAR DROP CELLS SLIGHT
[2020-04-17 12:49] LABS: TARGET CELLS 2+
[2020-04-17 12:51] LABS: TROPONIN I < 0.012 ng/mL
--- NOTE | 2020-04-17 13:31 | RADIOLOGY REPORT (SQ) ---
EXAM DESCRIPTION: CTA HEAD IMAGES COMPLETED DATE/TIME: 04/17/2020 1:14 pm REASON FOR STUDY: cva COMPARISON: None. TECHNIQUE: Post IV contrast scanning, thin section axial imaging through the brain to evaluate the a rterial structures. Source and MIP images are saved and reviewed on PACS. Advanced 3D imaging as volume-rendering, MIPs, SSD performed? yes All CT scanners at this facility use dose modulation, iterative reconstruction, and/or weight based d osing when appropriate to reduce radiation dose to as low as reasonably achievable (ALARA). [facility]: Dose Right [facility]: CareDose [facility]: Dose Right [facility]: Teradose 4D [facility]: Maptia CONTRAST TYPE AND DOSE: 70 cc Omnipaque 350- low osmolar. RENAL FUNCTION: BUN 12 creatinine 0.57 LIMITATIONS: None. FINDINGS: ELIM IRA OF VALLADARES: The anterior, middle, posterior cerebral arteries are all patent. No ev idence of aneurysm or focal stenosis. POSTERIOR CIRCULATION: The distal vertebral arteries are patent as is the basilar artery. No aneurysm . BRAIN: No gross enhancing lesions as visualized. The superior cerebral hemispheres are not included in the field of view. BONES: Intact as visualized. SINUSES: No fluid or mucosal thickening. OTHER: No other significant finding. IMPRESSION: NO CTA EVIDENCE OF STENOSIS OR ANEURYSM OF THE ELIM IRA OF VALLADARES. TECHNICAL DOCUMENTATION: JOB ID: [id number] Quality ID # [id number]: Final reports with documentation of one or more dose reduction techniques (e.g., Au tomated exposure control, adjustment of the mA and/or kV according to patient size, use of iterative reconstruction technique) 2010 [employer]- All Rights Reserved Reading location - IP/workstation name: [email or web address]
--- NOTE | 2020-04-17 13:36 | RADIOLOGY REPORT (SQ) ---
EXAM DESCRIPTION: CTA NECK IMAGES COMPLETED DATE/TIME: 04/17/2020 1:14 pm REASON FOR STUDY: cva COMPARISON: None. TECHNIQUE: Axial dynamic scanning technique with dynamic contrast enhancement through the extra-aircraft time clerk nial carotid and vertebral arteries. Multiplanar reconstruction. 3-D MIPS and Volume-rendered imag es acquired at the workstation and saved to PACS. Images are reviewed in soft tissue, bone, lung w indows. All CT scanners at this facility use dose modulation, iterative reconstruction, and/or weight based d osing when appropriate to reduce radiation dose to as low as reasonably achievable (ALARA). [facility]: Dose Right [facility]: CareDose [facility]: Dose Right [facility]: Teradose 4D [facility]: [employer] CONTRAST TYPE AND DOSE: 70 cc Omnipaque 350- low osmolar. RENAL FUNCTION: BUN 12 creatinine 0.57 LIMITATIONS: None. FINDINGS: AORTIC ARCH: Normal three-vessel origin. Bilateral subclavian arteries are patent. No d issection. RIGHT CAROTIDS: Patent common, internal and external carotid arteries without suggestion of significa nt stenosis or irregular plaque. No dissection. RIGHT VERTEBRAL: Patent. No dissection. LEFT CAROTIDS: Patent common, internal and external carotid arteries without suggestion of significan t stenosis or irregular plaque. No dissection. LEFT VERTEBRAL: Patent. No dissection. OTHER: No other significant finding. OTHER: 3-D reconstructions confirm findings. IMPRESSION: NORMAL CTA OF THE EXTRA-CRANIAL CAROTID AND VERTEBRAL ARTERIES. COMMENT: Quality ID #[id number]: Measurements of distal internal carotid diameter were used as the denomina tor for stenosis measurement. TECHNICAL DOCUMENTATION: JOB ID: [id number] Quality ID # [id number]: Final reports with documentation of one or more dose reduction techniques (e.g., Au tomated exposure control, adjustment of the mA and/or kV according to patient size, use of iterative reconstruction technique) 2010 [employer]- All Rights Reserved Reading location - IP/workstation name: [email or web address]
[2020-04-17] MEDS ORDERED: ALTEPLASE INJ 100 MG VIAL IV ONE (13:52)
[2020-04-17] MEDS ORDERED: ALTEPLASE INJ 100 MG VIAL ONE (13:55)
[2020-04-17 15:38] VITALS: BP 170/137
== END 2020-04-17 15:38 | disposition short-term general hospital (02) ==
LOC: ER 11:47
DX: I63.9 Cerebral infarction, unspecified (principal); G81.01 Flaccid hemiplegia affecting right dominant side; R47.1 Dysarthria and anarthria; R20.8 Other disturbances of skin sensation; H02.401 Unspecified ptosis of right eyelid; R29.706 NIHSS score 6; D50.9 Iron deficiency anemia, unspecified; F17.210 Nicotine dependence, cigarettes, uncomplicated; I10 Essential (primary) hypertension; Z88.0 Allergy status to penicillin
CPT/HCPCS: 93005; 99291; 99292; 37195; 36415; 82553; 82962; 82550; 85025; 85610; 85730; 82270; 80053; 84484; 71045; 70450; 70496; 70498; 93010; J2997